=== PATIENT | female | born 1950 | race African-American/Black ===

== ENCOUNTER 2017-04-21 12:40 | Emergency (ER) | payer MEDICARE, OTHER ==
[~2017-04-21] VITALS: Ht 165.1 cm; Wt 79.0 kg
[~2017-04-21 12:40] MED LIST: ALBU8.5H IH; ASPI81TA42 PO; BECL8.7A6 IH; CALC-866 PO; CELE100 PO; CYCL10 PO; HYDR25TA PO; LORA10TA60 PO; TRAM50TA50 PO
[2017-04-21] MEDS ORDERED: OxyCODONE HCL/ACETAMINOPHEN 5-325 MG TABLET PO ONE (15:15)
[2017-04-21] MEDS ORDERED: LIDOCAINE HCL 5% TRANSDERMAL PATCH TD ONE (15:15)
[2017-04-21 17:08] VITALS: BP 126/80
== END 2017-04-21 18:04 | disposition home or self-care (01) ==
LOC: EMS 12:41
DX: R07.89 Other chest pain (principal); J45.909 Unspecified asthma, uncomplicated; I11.9 Hypertensive heart disease without heart failure; Z86.73 Personal history of transient ischemic attack (TIA), and cerebral infarction without residual deficits; Z88.6 Allergy status to analgesic agent; Z88.1 Allergy status to other antibiotic agents; Z88.5 Allergy status to narcotic agent; Z88.0 Allergy status to penicillin; Z79.82 Long term (current) use of aspirin; W19.XXXA Unspecified fall, initial encounter; Y93.89 Activity, other specified; Y92.89 Other specified places as the place of occurrence of the external cause; Y99.8 Other external cause status
CPT/HCPCS: 70450; 71250; 72125; 72192; 74150; 93005; 99284

== ENCOUNTER 2017-05-14 02:58 | Emergency (ER) | payer MEDICARE, OTHER ==
[~2017-05-14] VITALS: Ht 165.1 cm; Wt 62.0 kg
[~2017-05-14 02:58] MED LIST changes: -ALBU8.5H IH; +ALBU8.5H8 IH; +TRAM50TA2 PO; -TRAM50TA50 PO
[2017-05-14] MEDS ORDERED: PERTUSS(ACELL),DIPH,TET VAC/PF 0.5 ML VIAL IM ONE (04:45)
[2017-05-14] MEDS ORDERED: ACETAMINOPHEN 500 MG TABLET PO ONE (04:45)
[2017-05-14 06:20] VITALS: BP 130/74
== END 2017-05-14 06:21 | disposition home or self-care (01) ==
LOC: EMS 02:59
DX: S40.211A Abrasion of right shoulder, initial encounter (principal); S00.81XA Abrasion of other part of head, initial encounter; S80.211A Abrasion, right knee, initial encounter; J45.909 Unspecified asthma, uncomplicated; I11.9 Hypertensive heart disease without heart failure; Z86.73 Personal history of transient ischemic attack (TIA), and cerebral infarction without residual deficits; Z88.6 Allergy status to analgesic agent; Z88.1 Allergy status to other antibiotic agents; Z88.5 Allergy status to narcotic agent; Z88.0 Allergy status to penicillin; W18.30XA Fall on same level, unspecified, initial encounter; Y93.01 Activity, walking, marching and hiking; Y92.481 Parking lot as the place of occurrence of the external cause; Y99.8 Other external cause status
CPT/HCPCS: 70486; 90471; 90715; 99284

== ENCOUNTER 2017-06-14 18:10 | Emergency (ER) | payer MEDICARE, OTHER ==
[~2017-06-14] VITALS: Ht 165.1 cm; Wt 81.5 kg
[2017-06-14] MEDS ORDERED: IPRNEB IH (18:27)
[2017-06-14] MEDS ORDERED: DiphenhydrAMINE HCL 25 MG CAPSULE PO ONE (19:30)
[2017-06-14] MEDS ORDERED: PredniSONE 20 MG TABLET PO ONE (19:30)
[2017-06-14] MEDS ORDERED: DOXYCYCLINE 100 MG CAPSULE PO ONE (19:30)
[2017-06-14 19:58] VITALS: BP 138/85
== END 2017-06-14 20:04 | disposition home or self-care (01) ==
LOC: EMS 18:13
DX: T63.301A Toxic effect of unspecified spider venom, accidental (unintentional), initial encounter (principal); L03.213 Periorbital cellulitis; J45.909 Unspecified asthma, uncomplicated; I11.9 Hypertensive heart disease without heart failure; Z86.73 Personal history of transient ischemic attack (TIA), and cerebral infarction without residual deficits; Z88.6 Allergy status to analgesic agent; Z88.1 Allergy status to other antibiotic agents; Z88.5 Allergy status to narcotic agent; Z88.0 Allergy status to penicillin
CPT/HCPCS: 99284; J7512

== ENCOUNTER 2018-06-23 13:46 | Inpatient (IN) | payer MEDICARE, OTHER ==
[~2018-06-23] VITALS: Ht 165.1 cm; Wt 85.2 kg
[~2018-06-23 13:46] MED LIST changes: +IPRNEB IH
[2018-06-23 13:58] LABS: GLUCOSE,POINT OF CARE 92 MG/DL (70-110)
[2018-06-23] MEDS ORDERED: IOVERSOL 350 MG/ML 100 ML VIAL ONE (14:01)
[2018-06-23 14:11] LABS: BASOPHILS % (AUTO) 0.8 % (0.0-2.0); EOSINOPHILS % (AUTO) 0.1 % (1.0-6.0); HEMATOCRIT 42.7 % (36-46); HEMOGLOBIN 14.3 g/dL (12.0-16.0); LYMPHOCYTES # (AUTO) 1.7 K/uL (1.0-4.8); LYMPHOCYTES % (AUTO) 30.1 % (22.0-44.0); MEAN CORPUSCULAR HEMOGLOBIN 30.2 pg (26.0-34.0); MEAN CORPUSCULAR HGB CONC 33.5 G/dL (31.0-37.0); MEAN CORPUSCULAR VOLUME 90 fL (80-100); MONOCYTES # (AUTO) 0.5 K/uL (0.1-1.0); NEUTROPHILS # (AUTO) 3.5 K/uL (1.8-7.7); PLATELET COUNT (AUTO) 269 K/uL (150-450); RED BLOOD CELL COUNT(AUTO) 4.72 MIL/uL (4.00-5.20); RED CELL DISTRIBUTION WIDTH 13.8 % (11.5-14.5)
[2018-06-23 14:26] LABS: ANION GAP 9 mmol/L (8-16); CALCIUM, TOTAL 9.3 mg/dL (8.8-10.5); CARBON DIOXIDE 29 mmol/L (22-29); CHLORIDE 102 mmol/L (98-107); CREATININE 0.92 mg/dL (0.60-1.30); GLOMERULAR FILTR. RATE CALC > 60 mL/min (>60); GLUCOSE,RANDOM 103 mg/dL (70-110); POTASSIUM 3.2 mmol/L (3.5-5.1); SODIUM SERUM 140 mmol/L (136-145); UREA NITROGEN, BLOOD 12 mg/dL (7-18)
[2018-06-23 14:31] LABS: ALANINE AMINOTRANSFERASE 22 U/L (12-78); ALKALINE PHOSPHATASE 78 U/L (46-116); ASPARTATE AMINOTRANSFERASE 16 U/L (15-37); BILIRUBIN,TOTAL 0.3 mg/dL (0.1-1.0); TOTAL PROTEIN, SERUM 8.1 g/dL (6.4-8.2)
[2018-06-23 14:41] LABS: PROTHROMBIN TIME 10.5 SEC (9.4-11.6)
[2018-06-23] MEDS ORDERED: ASPIRIN 325 MG TABLET PO ONE (14:45)
[2018-06-23] MEDS ORDERED: ONDANSETRON HCL 4 MG/2 ML VIAL IVP PRN (15:00)
[2018-06-23] MEDS ORDERED: 0.9% SODIUM CHLORIDE 10 ML SYRINGE IVP PRN (15:00)
[2018-06-23] MEDS ORDERED: ACETAMINOPHEN 325 MG TABLET PO PRN (15:00)
[2018-06-23] MEDS ORDERED: SODIUM CHLORIDE 0.9% 1,000 ML IV ONE (15:00)
[2018-06-23 17:27] VITALS: BP 142/91
[2018-06-23 18:15] VITALS: BP 141/84
[2018-06-23] MEDS ORDERED: POTASSIUM CHL 10 MEQ/WATER 50 ML IV PRN (18:15)
[2018-06-23] MEDS ORDERED: POTASSIUM CHLORIDE 20 MEQ ER TABLET PO PRN (18:15)
[2018-06-23 19:29] VITALS: BP 149/88
[2018-06-23 22:07] VITALS: BP 108/68
[2018-06-24 00:02] VITALS: BP 109/70
[2018-06-24] MEDS ORDERED: 0.9% SODIUM CHLORIDE 10 ML SYRINGE IVP PRN (02:00)
[2018-06-24] MEDS ORDERED: ONDANSETRON HCL 4 MG/2 ML VIAL IVP PRN (02:00)
[2018-06-24] MEDS ORDERED: MAGNESIUM HYDROXIDE SUSPENSION 30 ML UDCUP PO PRN (02:00)
[2018-06-24] MEDS ORDERED: ACETAMINOPHEN 325 MG TABLET PO PRN (02:00)
[2018-06-24 04:20] VITALS: BP 127/87
[2018-06-24 06:28] LABS: BASOPHILS % (AUTO) 0.5 % (0.0-2.0); EOSINOPHILS % (AUTO) 1.7 % (1.0-6.0); HEMATOCRIT 36.8 % (36-46); HEMOGLOBIN 12.5 g/dL (12.0-16.0); LYMPHOCYTES # (AUTO) 1.9 K/uL (1.0-4.8); LYMPHOCYTES % (AUTO) 42.2 % (22.0-44.0); MEAN CORPUSCULAR HEMOGLOBIN 30.1 pg (26.0-34.0); MEAN CORPUSCULAR HGB CONC 33.9 G/dL (31.0-37.0); MEAN CORPUSCULAR VOLUME 89 fL (80-100); MONOCYTES # (AUTO) 0.4 K/uL (0.1-1.0); MONOCYTES % (AUTO) 8.6 % (2.0-9.0); NEUTROPHILS # (AUTO) 2.1 K/uL (1.8-7.7); PLATELET COUNT (AUTO) 231 K/uL (150-450); RED BLOOD CELL COUNT(AUTO) 4.14 MIL/uL (4.00-5.20)
[2018-06-24 06:43] LABS: ALANINE AMINOTRANSFERASE 17 U/L (12-78); ALKALINE PHOSPHATASE 64 U/L (46-116); ANION GAP 7 mmol/L (8-16); ASPARTATE AMINOTRANSFERASE 17 U/L (15-37); BILIRUBIN,TOTAL 0.3 mg/dL (0.1-1.0); CALCIUM, TOTAL 8.6 mg/dL (8.8-10.5); CARBON DIOXIDE 29 mmol/L (22-29); CHLORIDE 102 mmol/L (98-107); CREATININE 0.64 mg/dL (0.60-1.30); GLOMERULAR FILTR. RATE CALC > 60 mL/min (>60); GLUCOSE,RANDOM 88 mg/dL (70-110); POTASSIUM 3.7 mmol/L (3.5-5.1); SODIUM SERUM 138 mmol/L (136-145); TOTAL PROTEIN, SERUM 6.5 g/dL (6.4-8.2); UREA NITROGEN, BLOOD 9 mg/dL (7-18)
[2018-06-24 07:26] VITALS: BP 122/77
[2018-06-24] MEDS: PANTOPRAZOLE SODIUM 40 MG/VIAL IVP SCH (08:17)
[2018-06-24] MEDS: ASPIRIN 325 MG TABLET PO SCH (08:18)
[2018-06-24] MEDS: DOCUSATE SODIUM 100 MG CAPSULE PO SCH ×2 (08:18→20:00)
[2018-06-24] MEDS: TraMADol HCL 50 MG TABLET PO SCH ×2 (08:18→20:00)
[2018-06-24] MEDS: HYDROCHLOROTHIAZIDE 25 MG TABLET PO SCH (08:18)
[2018-06-24] MEDS: IPRATROPIUM BROMIDE 0.5 MG/2.5 ML NEB SOLUTION NEB SCH ×2 (08:45→20:05)
[2018-06-24 11:17] LABS: PHOSPHORUS 4.3 mg/dL (2.5-4.9); THYROID STIMULATING HORMONE 2.81 uIU/mL (0.36-3.74)
[2018-06-24] MEDS ORDERED: GABA-531 PO (11:21)
[2018-06-24 11:53] VITALS: BP 124/90
[2018-06-24 16:04] VITALS: BP 120/84
[2018-06-24] MEDS: GABAPENTIN 300 MG CAPSULE PO SCH ×2 (16:20→20:00)
[2018-06-24 20:23] VITALS: BP 151/97
[2018-06-25] VITALS: BP 100/68
[2018-06-25] MEDS: TraMADol HCL 50 MG TABLET PO SCH ×2 (05:36→17:26)
[2018-06-25 05:43] VITALS: BP 133/77
[2018-06-25 06:25] LABS: BASOPHILS % (AUTO) 0.7 % (0.0-2.0); EOSINOPHILS % (AUTO) 1.9 % (1.0-6.0); HEMATOCRIT 37.9 % (36-46); HEMOGLOBIN 12.5 g/dL (12.0-16.0); LYMPHOCYTES % (AUTO) 43.2 % (22.0-44.0); MEAN CORPUSCULAR HEMOGLOBIN 29.5 pg (26.0-34.0); MEAN CORPUSCULAR HGB CONC 32.9 G/dL (31.0-37.0); MEAN CORPUSCULAR VOLUME 90 fL (80-100); MONOCYTES # (AUTO) 0.4 K/uL (0.1-1.0); MONOCYTES % (AUTO) 8.6 % (2.0-9.0); NEUTROPHILS # (AUTO) 2.1 K/uL (1.8-7.7); NEUTROPHILS % (AUTO) 45.6 % (40.0-70.0); PLATELET COUNT (AUTO) 232 K/uL (150-450); RED BLOOD CELL COUNT(AUTO) 4.22 MIL/uL (4.00-5.20); RED CELL DISTRIBUTION WIDTH 13.8 % (11.5-14.5)
[2018-06-25 07:14] LABS: ANION GAP 8 mmol/L (8-16); CALCIUM, TOTAL 8.6 mg/dL (8.8-10.5); CARBON DIOXIDE 30 mmol/L (22-29); CHLORIDE 100 mmol/L (98-107); CREATININE 0.71 mg/dL (0.60-1.30); GLOMERULAR FILTR. RATE CALC > 60 mL/min (>60); GLUCOSE,RANDOM 88 mg/dL (70-110); POTASSIUM 3.7 mmol/L (3.5-5.1); SODIUM SERUM 138 mmol/L (136-145); UREA NITROGEN, BLOOD 17 mg/dL (7-18)
[2018-06-25 07:22] VITALS: BP 125/79
[2018-06-25] MEDS ORDERED: 0.9% SODIUM CHLORIDE 5 ML NEB SOLUTION NEB ONE (07:59)
[2018-06-25] MEDS: PANTOPRAZOLE SODIUM 40 MG/VIAL IVP SCH (08:31)
[2018-06-25] MEDS: ASPIRIN 325 MG TABLET PO SCH (08:31)
[2018-06-25] MEDS: DOCUSATE SODIUM 100 MG CAPSULE PO SCH (08:31)
[2018-06-25] MEDS: HYDROCHLOROTHIAZIDE 25 MG TABLET PO SCH (08:31)
[2018-06-25] MEDS: GABAPENTIN 300 MG CAPSULE PO SCH ×2 (08:31→17:22)
[2018-06-25] MEDS ORDERED: CHOLECALCIFEROL (VIT D3) 5,000 UNITS CAPSULE PO SCH (09:00)
[2018-06-25] MEDS: IPRATROPIUM BROMIDE 0.5 MG/2.5 ML NEB SOLUTION NEB SCH ×2 (09:00→20:19)
[2018-06-25 11:35] VITALS: BP 116/68
[2018-06-25] MEDS ORDERED: ALBUTEROL SULFATE 2.5 MG/0.5 ML NEB SOLUTION NEB PRN (13:30)
[2018-06-25] MEDS ORDERED: IPRATROPIUM BROMIDE 0.5 MG/2.5 ML NEB SOLUTION NEB PRN (14:15)
[2018-06-25 16:09] VITALS: BP 118/66
[2018-06-25 19:43] VITALS: BP 131/81
[2018-06-25] MEDS ORDERED: ASPI-1213 PO (19:58)
[2018-06-25] MEDS ORDERED: ASPI-891 PO (20:15)
[2018-06-25] MEDS ORDERED: ALBU8.5H8 IH (20:16)
== END 2018-06-25 21:00 | disposition home or self-care (01) | DRG 69 ==
LOC: EMS 13:47 → 5N 16:22 → 5S 06-24 16:50
PROVIDERS: ADMIT Internal Medicine; ATTEND Internal Medicine
DX: G45.9 Transient cerebral ischemic attack, unspecified (principal); I10 Essential (primary) hypertension; J44.9 Chronic obstructive pulmonary disease, unspecified; F80.81 Childhood onset fluency disorder; G51.0 Bell's palsy; Z86.73 Personal history of transient ischemic attack (TIA), and cerebral infarction without residual deficits; Z90.710 Acquired absence of both cervix and uterus; Z88.0 Allergy status to penicillin; Z88.1 Allergy status to other antibiotic agents; Z88.5 Allergy status to narcotic agent
CPT/HCPCS: 70496; 70551; 83036; 84100; 84132; 84443; 86850; 86900; 86901; 93005; 93306; 93880; 94640; 97116; 97162; 97166; 97535; 99291; C9113; G0378; J7030

== ENCOUNTER 2018-11-27 21:05 | Emergency (ER) | payer MEDICARE, OTHER ==
[~2018-11-27] VITALS: Ht 165.1 cm; Wt 79.5 kg
[~2018-11-27 21:05] MED LIST changes: +ASPI-891 PO; -ASPI81TA42 PO; +GABA-531 PO
[2018-11-27] MEDS ORDERED: DiphenhydrAMINE HCL 25 MG CAPSULE PO ONE (22:45)
[2018-11-28 00:23] VITALS: BP 136/84
== END 2018-11-28 00:25 | disposition home or self-care (01) ==
LOC: EMS 21:06
DX: S10.96XA Insect bite of unspecified part of neck, initial encounter (principal); J45.909 Unspecified asthma, uncomplicated; I11.9 Hypertensive heart disease without heart failure; M19.90 Unspecified osteoarthritis, unspecified site; Z86.73 Personal history of transient ischemic attack (TIA), and cerebral infarction without residual deficits; Z90.710 Acquired absence of both cervix and uterus; Z88.6 Allergy status to analgesic agent; Z88.1 Allergy status to other antibiotic agents; Z88.5 Allergy status to narcotic agent; Z88.0 Allergy status to penicillin; Z79.82 Long term (current) use of aspirin; W57.XXXA Bitten or stung by nonvenomous insect and other nonvenomous arthropods, initial encounter; Y93.89 Activity, other specified; Y92.89 Other specified places as the place of occurrence of the external cause; Y99.8 Other external cause status

== ENCOUNTER 2019-10-01 02:01 | Emergency (ER) | payer MEDICARE, OTHER ==
[~2019-10-01] VITALS: Ht 165.1 cm; Wt 79.5 kg
[~2019-10-01 02:01] MED LIST changes: +HYDR-1475 PO; -HYDR25TA PO
[2019-10-01] MEDS ORDERED: ATEN-187 PO (02:43)
[2019-10-01] MEDS ORDERED: ACETAMINOPHEN 325 MG TABLET PO ONE (03:45)
[2019-10-01] MEDS ORDERED: TiZANidine HCL 4 MG TABLET PO ONE (03:45)
[2019-10-01 05:55] VITALS: BP 129/76
== END 2019-10-01 06:05 | disposition home or self-care (01) ==
LOC: EMS 02:01
DX: S09.90XA Unspecified injury of head, initial encounter (principal); M62.830 Muscle spasm of back; I10 Essential (primary) hypertension; J45.909 Unspecified asthma, uncomplicated; Z88.0 Allergy status to penicillin; Z88.1 Allergy status to other antibiotic agents; Z88.5 Allergy status to narcotic agent; Z88.6 Allergy status to analgesic agent; Z79.82 Long term (current) use of aspirin; Z79.899 Other long term (current) drug therapy; W18.39XA Other fall on same level, initial encounter; Y93.01 Activity, walking, marching and hiking; Y92.89 Other specified places as the place of occurrence of the external cause; Y99.8 Other external cause status
CPT/HCPCS: 70450; 72072; 72110; 72125

== ENCOUNTER 2021-02-14 17:23 | Emergency (ER) | payer MEDICARE, OTHER ==
[~2021-02-14] VITALS: Ht 165.1 cm; Wt 79.5 kg
[~2021-02-14 17:23] MED LIST changes: +ATEN-187 PO; -CYCL10 PO; +GABA-1181 PO; -GABA-531 PO; -HYDR-1475 PO; +HYDR25TA2 PO; -IPRNEB IH; -LORA10TA60 PO
[2021-02-14 22:06] VITALS: BP 155/85
== END 2021-02-14 22:10 | disposition home or self-care (01) ==
LOC: EMS 17:23
DX: R60.0 Localized edema (principal); I10 Essential (primary) hypertension; J45.909 Unspecified asthma, uncomplicated; Z88.0 Allergy status to penicillin; Z88.1 Allergy status to other antibiotic agents; Z88.5 Allergy status to narcotic agent; Z91.040 Latex allergy status; Z79.82 Long term (current) use of aspirin; Z79.899 Other long term (current) drug therapy
CPT/HCPCS: 93971; 99284; Z7502

== ENCOUNTER 2022-01-17 18:42 | Emergency (ER) | payer MEDICARE, OTHER ==
[~2022-01-17] VITALS: Ht 165.1 cm; Wt 77.0 kg
[2022-01-17 19:02] VITALS: BP 137/76
[2022-01-17] MEDS ORDERED: DIPH25CA85 PO (20:10)
[2022-01-17] MEDS ORDERED: ACET-66 PO (20:10)
[2022-01-17] MEDS ORDERED: ACETAMINOPHEN 500 MG TABLET PO ONE (20:15)
[2022-01-17] MEDS ORDERED: OLOP2.5D16 OU (20:15)
[2022-01-17] MEDS ORDERED: LORA10TA7 PO (20:15)
[2022-01-17] MEDS ORDERED: CLOT15CR23 TP (20:15)
[2022-01-17] MEDS ORDERED: FLUT16H NASAL (20:15)
== END 2022-01-17 20:30 | disposition home or self-care (01) ==
LOC: EMS 18:42
DX: T63.441A Toxic effect of venom of bees, accidental (unintentional), initial encounter (principal); I10 Essential (primary) hypertension; J45.909 Unspecified asthma, uncomplicated; Z88.0 Allergy status to penicillin; Z88.1 Allergy status to other antibiotic agents; Z91.040 Latex allergy status; Z79.899 Other long term (current) drug therapy; Y92.89 Other specified places as the place of occurrence of the external cause
CPT/HCPCS: 99282; Z7502; Z7610

== ENCOUNTER 2025-06-15 16:22 | Emergency (ER) | payer MEDICARE, OTHER ==
[~2025-06-15] VITALS: Ht 165.1 cm; Wt 73.2 kg
[~2025-06-15 16:22] MED LIST changes: +ACET-66 PO; -ASPI-891 PO; +ATOR40TA28 PO; -BECL8.7A6 IH; -CALC-866 PO; -CELE100 PO; +CLOP75TA83 PO; -HYDR25TA2 PO; +OLOP2.5D16 OU; -TRAM50TA2 PO
[2025-06-15 16:34] VITALS: BP 127/71; PULSE 76; RESP 18; TEMP 98.2; O2SAT 97
[2025-06-15 18:09] LABS: PLATELET COUNT (AUTO) 205 K/uL (150-450); RED BLOOD CELL COUNT(AUTO) 3.75 MIL/uL (4.00-5.20); RED CELL DISTRIBUTION WIDTH 14.3 % (11.5-14.5); WHITE BLOOD COUNT (AUTO) 4.0 K/uL (4.5-11.0)
[2025-06-15 18:19] LABS: CALCIUM, TOTAL 8.3 mg/dL (8.8-10.5); CREATININE 0.66 mg/dL (0.60-1.30); GLOMERULAR FILTR. RATE CALC > 60 mL/min (>60); GLUCOSE,RANDOM 102 mg/dL (70-110); SODIUM SERUM 142 mmol/L (136-145); UREA NITROGEN, BLOOD 23 mg/dL (7-18)
[2025-06-15] MEDS: GABAPENTIN 100 MG CAPSULE PO ONE (18:54)
[2025-06-15] MEDS: KETOROLAC TROMETHAMINE 30 MG/ML VIAL IM ONE (18:54)
== END 2025-06-15 20:00 | disposition home or self-care (01) ==
LOC: EMS 16:22
DX: M79.662 Pain in left lower leg (principal); I10 Essential (primary) hypertension; M06.9 Rheumatoid arthritis, unspecified; J45.909 Unspecified asthma, uncomplicated; Z79.02 Long term (current) use of antithrombotics/antiplatelets; Z88.0 Allergy status to penicillin; Z88.1 Allergy status to other antibiotic agents; Z88.5 Allergy status to narcotic agent; Z88.6 Allergy status to analgesic agent; Z91.040 Latex allergy status; Z86.73 Personal history of transient ischemic attack (TIA), and cerebral infarction without residual deficits; Z85.3 Personal history of malignant neoplasm of breast; Z79.899 Other long term (current) drug therapy; Z98.890 Other specified postprocedural states
CPT/HCPCS: 99285; 93971; 80048; 83880; 85025; 36415; 93005; 96372; J1885